=== PATIENT | female | born 1950 | race Caucasian/White ===

== ENCOUNTER 2016-02-26 06:01 | Inpatient (IN) | payer OTHER, BC ==
[2016-02-01 13:01] VITALS: BMI 28.0
--- NOTE | 2016-02-01 14:04 | PAT Medication Instructions ---
Service Date Feb 01, 2016. Current Home Medication List Aspirin (Aspirin Ec), 81 MG PO QAM Budesonide/Formoterol Fumarate (Symbicort 80/4.5 Inhaler), 2 PUFFS INH PRN Ergocalciferol (Vitamin D 30730 Unit), 50,000 UNIT PO 2XWEEK Escitalopram Oxalate (Lexapro), 20 MG PO QAM Gabapentin (Neurontin), 300 MG PO TID Hydrocodone/Acetaminophen 7.5MG/325MG (Mccaskill 7.5MG/325MG), 1-2 TAB PO Q6H PRN for N Levothyroxine Sodium (Synthroid), 137 MG PO QAM Losartan Potassium (Cozaar), 25 MG PO QAM Multivitamin (Multivitamin), 1 TAB PO NOON Medication Instructions For Your Scheduled Surgery - Hold the following medications the morning of surgery: Losartan Potassium (Cozaar), 25 MG PO QAM Multivitamin (Multivitamin), 1 TAB PO NOON Ergocalciferol (Vitamin D 96469 Unit), 50,000 UNIT PO 2XWEEK (may take day before or day after) - Take the following medications the morning of surgery with a sip of water OTHERWISE NOTHING TO EAT OR DRINK AFTER MIDNIGHT: Aspirin (Aspirin Ec), 81 MG PO QAM Gabapentin (Neurontin), 300 MG PO TID Levothyroxine Sodium (Synthroid), 137 MG PO QAM Hydrocodone/Acetaminophen 7.5MG/325MG (Mccaskill 7.5MG/325MG), 1-2 TAB PO Q6H PRN ( may take up to 4 hours prior to surgery if needed) Escitalopram Oxalate (Lexapro), 20 MG PO QAM Budesonide/Formoterol Fumarate (Symbicort 80/4.5 Inhaler), 2 PUFFS INH PRN - Take the following medications as scheduled the night before surgery: Gabapentin (Neurontin), 300 MG PO TID Hydrocodone/Acetaminophen 7.5MG/325MG (Mccaskill 7.5MG/325MG), 1-2 TAB PO Q6H PRN for N If you have any questions please call us at [phone] (Alyssa Skelton PA-C ) or [phone] or [phone]
[2016-02-01 14:28] LABS: BASO % 0.5 %; BASO ABS # 0.03 K/uL (0-0.2); COMPLETE YES; EOS % 0.9 %; HEMATOCRIT 41.9 % (37-47); IG% 0.4 %; LYMPH ABS # 1.32 K/uL (1.2-3.4); MEAN CELL VOLUME 92.5 fL (80-100); MEAN CORPUSCULAR HEMOGLOBIN 30.7 pg (25-34); MEAN CORPUSCULAR HGB CONC 33.2 g/dl (32-36); MEAN PLATELET VOLUME 9.7 fL (7.4-10.4); MONO % 8.7 %; NEUT % 65.5 %; PLATELET COUNT 288 K/uL (130-400); RED BLOOD COUNT 4.53 M/uL (4.2-5.4)
[2016-02-01 14:39] LABS: PROTHROMBIN TIME (PATIENT) 10.4 SECONDS (9.0-12.0)
[2016-02-01 14:43] LABS: URINE APPEARANCE CLEAR (CLEAR); URINE BILIRUBIN NEG (NEG); URINE COLOR YELLOW; URINE NITRITE NEG (NEG); URINE PH 7.5 (4.5-7.5); URINE SPECIFIC GRAVITY 1.012 (1.000-1.030); UROBILINOGEN NEG (NEG); ZZUR CULT IF INDIC CLEAN CATCH NO
[2016-02-01 14:44] LABS: MANUAL MICROSCOPIC REQUIRED? NO; REVIEW REQ? NO
[2016-02-01 15:01] LABS: BUN/CREATININE RATIO 13.1 (10-20); CREATININE 0.96 mg/dl (0.60-1.20); POTASSIUM 4.1 mmol/L (3.5-5.1)
[2016-02-01 18:13] LABS: CALCIUM 9.4 mg/dl (8.5-10.1)
--- NOTE | 2016-02-08 14:12 | HISTORY & PHYSICAL EXAMINATION ---
DATE OF ADMISSION: 02/25/2015 CHIEF COMPLAINT: Right knee pain. HISTORY OF PRESENT ILLNESS: Mr. Crawley is a pleasant 65-year-old female with a 2-year history of right knee pain. The patient rates his pain an 8/10. She has pain with his daily activities. She has limited standing and walking tolerance. Pain is worse with weightbearing. The patient has had injections, home exercise program and [place] without relief. She has failed conservative treatment and is scheduled for right knee replacement. PAST MEDICAL HISTORY: Hypertension, anxiety, thyroid disease, history of breast cancer, cervical cancer and thyroid disease. Positive for left lower extremity deep venous thrombosis. Denies heart disease or diabetes. PAST SURGICAL HISTORY: Hysterectomy, radical mastectomy, left knee replacement, vagotomy, right shoulder thyroidectomy and right wrist surgery. SOCIAL HISTORY: The patient drinks 6 drinks per week. She denies tobacco use. She lives in a 2-story home but is functional on one floor. She is and retired. FAMILY HISTORY: Positive for PE in her mother and grandmother. MEDICATIONS: Gabapentin 300 mg, citalopram 20 mg, Synthroid 137 mcg, losartan 25 mg. ALLERGIES: ATORVASTATIN, CELEBREX, MORPHINE, STATINS, SIMVASTATIN, CALCIUM, AGGLUTININ, AND COCONUT. REVIEW OF SYSTEMS: See HPI. Ten other systems reviewed, all negative. PHYSICAL EXAMINATION: VITAL SIGNS: Height 5 foot 5, weight 169 pounds, BMI is 28. GENERAL: This is a well-developed, well-nourished female who is alert and oriented x3. Mood and affect are appropriate. HEAD, EYES, EARS, NOSE, AND THROAT: Normocephalic, atraumatic. Mucous membranes are moist and intact. NECK: Supple without lymphadenopathy. HEART: Regular rate and rhythm without murmurs, rubs or gallops. LUNGS: Clear to auscultation without wheezes or rhonchi. ABDOMEN: Soft and nontender. Bowel sounds are equal and active. EXTREMITIES: No ecchymosis, redness or warmth. Thigh and calf are soft and nontender. She has neutral alignment. Range of motion is from 0-115 degrees with no laxity. She is neurovascularly intact with +5/5 strength. X-RAY EXAMINATION: AP and lateral views show joint space narrowing and osteophyte formation. IMPRESSION: Degenerative joint disease, right knee. PLAN: The patient will be admitted for a right unicompartmental knee replacement. We will plan on aspirin for DVT prophylaxis. The patient will plan on outpatient physical therapy.
[2016-02-26] VITALS (8 sets, daily range): BP systolic 108–150; BP diastolic 70–85; PULSE 54–75; TEMP 36.4–36.9; O2SAT 96–97; Ht 165.1 cm; Wt 76.8 kg
[~2016-02-26] VITALS: Ht 165.1 cm; Wt 76.8 kg
[~2016-02-26 06:01] MED LIST: ACETAMINOPHEN 500 MG TAB PO SCH; ASPI81TA28 PO; CEFAZOLIN 2000 MG/60 ML D5W 60 ML IV SCH; DEXAMETHASONE 4 MG TAB PO SCH; ERGO500037 PO; ESCI1TAB10 PO; FAMOTIDINE 20 MG TAB PO SCH; GABA-113 PO; GABAPENTIN 300 MG CAP PO SCH; HYDR-3983 PO; LACTATED RINGER'S 1000ML IV SCH; LACTATED RINGER'S 500 ML IV SCH; LEVO-519 PO; LOSA1TAB PO; METOCLOPRAMIDE HCL 10 MG TAB PO SCH; MULT-506 PO; OXYCODONE HCL 10 MG TABCR (OXYCONTIN) PO SCH; ROPIVACAINE 5MG/ML 30 ML 150 MG, BUPIVACAINE/EPINEPHR 0.5% MPF 30 ML, KETOROLAC TROMETH... INFIL SCH; SYMIN/8045 INH
[2016-02-26] MEDS ORDERED: BUPIVACAINE 0.25% 30 ML VIAL ONE (06:22)
[2016-02-26] MEDS ORDERED: BUPIVACAINE 0.5 % 5 MG/1 ML PF 10ML VIAL ONE (06:22)
[2016-02-26] MEDS: TRANEXAMIC ACID INJ 1,000 MG in SODIUM CHLORIDE 0.9% 100ML 100 ML IV SCH ×2 (06:30→08:20)
[2016-02-26] MEDS ORDERED: PROPOFOL IV EMULSION 10 MG/ML 20 ML VIAL IV ONE ×2 (06:38→09:46)
[2016-02-26] MEDS ORDERED: MIDAZOLAM HCL 1 MG/ML 2ML VIAL ONE (06:38)
[2016-02-26] MEDS ORDERED: FENTANYL CITRATE INJ 50 MCG/1 ML 2 ML VIAL ONE (06:38)
[2016-02-26] MEDS ORDERED: ORTHO JOINT ANESTHETIC ONE (06:53)
--- NOTE | 2016-02-26 07:06 | History & Physical Bridge Note ---
H&P Re-Evaluation Bridge Note: I have examined the patient, reviewed the History & Physical and in the interval since the performance of the History & Physical I have noted the following changes of clinical significance: No changes noted
[2016-02-26] MEDS ORDERED: SCOPOLAMINE 1.5 MG TDSY TD ONE (07:42)
[2016-02-26] MEDS ORDERED: ATROPINE SULFATE 0.1 MG/ML 5ML SYR IV PRN (07:45)
[2016-02-26] MEDS ORDERED: SCOPOLAMINE 1.5 MG TDSY TD SCH (07:45)
[2016-02-26] MEDS ORDERED: EpHEDrine SULFATE INJ 50 MG/ML AMP IV PRN (07:45)
[2016-02-26] MEDS ORDERED: ONDANSETRON INJ 2 MG/ML 2 ML VIAL IV PRN ×2 (07:45→10:15)
[2016-02-26] MEDS ORDERED: FENTANYL CITRATE INJ 50 MCG/1 ML 2 ML VIAL IV PRN (07:45)
[2016-02-26] MEDS: CHECK SCOPOLAMINE PATCH PLACEMENT SCH ×2 (08:00→16:04)
[2016-02-26] MEDS ORDERED: BUPIVACAINE/EPINEPHRINE 0.25% 1:200,000 30 ML VIAL INJ ONE (09:39)
[2016-02-26] MEDS: POLYMYXIN B SULFATE 100,000 UNITS in NSS 100ML IR SCH ×2 (09:53→09:55)
[2016-02-26] MEDS: VANCOMYCIN INJ 400 MG in NSS 100ML IR SCH ×2 (09:53→09:55)
[2016-02-26] MEDS ORDERED: POVIDONE-IODINE OP SOLN 30 ML BTL TOP ONE (10:00)
[2016-02-26] MEDS ORDERED: BACITRACIN 50000 UNIT VIAL IR ONE (10:00)
--- NOTE | 2016-02-26 10:01 | [facility] Post Operative Brief Note ---
Immediate Operative Summary Operative Date Feb 26, 2016. Pre-Operative Diagnosis Degenerative joint disease, right knee Post-Operative Diagnosis same as preop Procedure(s) Performed Right Unicompartmental Total Knee Arthroplasty Surgeon Dr. Akash Arroyo [employer] Surgeon(s) RODRICK Odom Estimated Blood Loss 5ML Findings MEDIAL DZ ACL INTACT Specimens A: Right knee bone and tissue Complication(s) None Disposition Recovery Room / PACU
[2016-02-26] MEDS ORDERED: BISACODYL 10 MG SUPP PR PRN (10:15)
[2016-02-26] MEDS ORDERED: KETOROLAC TROMETHAMINE 15 MG/ML VIAL IV. PRN (10:15)
[2016-02-26] MEDS ORDERED: MAGNESIUM HYDROXIDE SUSP 30 ML UDC PO PRN (10:15)
[2016-02-26] MEDS ORDERED: TRAMADOL HCL 50 MG TAB PO PRN (10:15)
[2016-02-26] MEDS ORDERED: DiphenhydrAMINE HCL 50 MG/ML VIAL IV PRN (10:15)
[2016-02-26] MEDS ORDERED: SOD PHOSPHATE/SOD BIPHOSPHATE ENEMA 132 ML BTL PR PRN (10:15)
[2016-02-26] MEDS ORDERED: ALUMINUM/MAGNESIUM/SIMETH (MAALOX MAX) 30 ML UDC PO PRN (10:15)
[2016-02-26] MEDS ORDERED: ZOLPIDEM TARTRATE 5 MG TAB PO PRN (10:15)
[2016-02-26] MEDS ORDERED: METOCLOPRAMIDE HCL INJ 5 MG/ML 2 ML VIAL IV PRN (10:15)
[2016-02-26] MEDS ORDERED: ONDANSETRON INJ 2 MG/ML 2 ML VIAL ONE (10:16)
--- NOTE | 2016-02-26 11:02 | DIAGNOSTIC IMAGING REPORT ---
RIGHT KNEE 1 OR 2 VIEWS ROUTINE CLINICAL HISTORY: Degenerative arthritis. Postop study. COMPARISON: None. DISCUSSION: There are postsurgical changes of a medial joint compartment arthroplasty. There are no acute fractures. There is no dislocation. There is air within soft tissues consistent with recent surgery. IMPRESSION: Postsurgical changes of a medial joint compartment arthroplasty. Electronically signed by: Krunal Cho M.D. 02/26/2016 11:00 AM
--- NOTE | 2016-02-26 11:16 | Anesthesiology Progress Note ---
Anesthesia Post Op Note Date & Time Feb 26, 2016 at 11:15 Vital Signs Pain Intensity: 6 Vital Signs Past 12 Hours Date Time Temp Pulse Resp B/P Pulse Ox O2 Delivery O2 Flow Rate FiO2 02/26/16 11:10 36.5 63 16 104/65 97 Nasal Cannula 2 02/26/16 11:00 63 16 114/64 96 Nasal Cannula 2 02/26/16 10:50 66 16 115/64 95 Nasal Cannula 2 02/26/16 10:40 72 16 119/65 97 Mask 10 02/26/16 10:30 36.9 70 16 107/59 97 Mask 10 02/26/16 06:55 36.7 54 18 150/85 96 Room Air Notes Mental Status: alert / awake / arousable, participated in evaluation Pt Amnestic to Procedure: Yes Nausea / Vomiting: adequately controlled Pain: adequately controlled Airway Patency, RR, SpO2: stable & adequate BP & HR: stable & adequate Hydration State: stable & adequate Neuraxial Anesthesia: was administered, sensory block is resolving Anesthetic Complications: no major complications apparent
[2016-02-26] MEDS ORDERED: PHENYLEPHRINE 100MCG/ML 5ML SYR ONE (12:13)
[2016-02-26] MEDS: D5W AND 1/2NSS + 20MEQ KCL 1,000 ML IV SCH ×2 (12:45→22:07)
[2016-02-26] MEDS: GABAPENTIN 300 MG CAP PO SCH ×2 (14:15→21:10)
[2016-02-26] MEDS: ACETAMINOPHEN 500 MG TAB PO SCH ×2 (14:29→22:06)
[2016-02-26] MEDS: CEFAZOLIN IV 2,000 MG in DEXTROSE 5% 50ML 50 ML IV SCH (15:56)
[2016-02-26] MEDS: SENNA 8.6 MG TAB PO SCH (21:10)
[2016-02-27] MEDS: CHECK SCOPOLAMINE PATCH PLACEMENT SCH (00:27)
[2016-02-27] MEDS: CEFAZOLIN IV 2,000 MG in DEXTROSE 5% 50ML 50 ML IV SCH (00:27)
[2016-02-27 03:30] VITALS: BP 109/66; PULSE 56; TEMP 36.7; O2SAT 95
[2016-02-27] MEDS: LEVOTHYROXINE 137 MCG TAB PO SCH (05:24)
[2016-02-27] MEDS: ACETAMINOPHEN 500 MG TAB PO SCH ×3 (05:25→21:37)
[2016-02-27 06:13] LABS: HEMATOCRIT 34.3 % (37-47); MEAN CELL VOLUME 93.7 fL (80-100); MEAN CORPUSCULAR HEMOGLOBIN 30.6 pg (25-34); MEAN CORPUSCULAR HGB CONC 32.7 g/dl (32-36); PLATELET COUNT 245 K/uL (130-400); RED BLOOD COUNT 3.66 M/uL (4.2-5.4); WHITE BLOOD COUNT 14.22 K/uL (4.8-10.8)
[2016-02-27 06:41] LABS: BUN/CREATININE RATIO 11.2 (10-20); CALCIUM 8.2 mg/dl (8.5-10.1); POTASSIUM 4.5 mmol/L (3.5-5.1)
[2016-02-27 07:12] VITALS: BP 104/65; PULSE 50; TEMP 36.7; O2SAT 96
--- NOTE | 2016-02-27 07:57 | Anesthesiology Progress Note ---
Anesthesia Post Op Note Date & Time Feb 27, 2016 at 07:56 Vital Signs Pain Intensity: 0.0 Vital Signs Past 12 Hours Date Time Temp Pulse Resp B/P Pulse Ox O2 Delivery O2 Flow Rate FiO2 02/27/16 07:12 36.7 50 16 104/65 96 Room Air 02/27/16 03:30 36.7 56 16 109/66 95 Room Air 02/26/16 23:40 Room Air 02/26/16 23:05 36.9 55 16 146/70 97 Room Air Notes Mental Status: alert / awake / arousable, participated in evaluation Pt Amnestic to Procedure: Yes Nausea / Vomiting: adequately controlled Pain: adequately controlled Airway Patency, RR, SpO2: stable & adequate BP & HR: stable & adequate Hydration State: stable & adequate Neuraxial Anesthesia: was administered, sensory block resolved Anesthetic Complications: no major complications apparent
--- NOTE | 2016-02-27 08:12 | Orthopedic Progress Note ---
Orthopedic Progress Note Date of Service Feb 27, 2016. Subjective Post OP Day: 1 Reports: feeling well, Denies: SOB, calf pain, chest pain, light headedness, nausea / vomiting Additional Notes: DOING GREAT, HAS ZERO PAIN Objective calves soft nontender, N/V intact, dressing C/D/I, A&O x3, toes mobile Date Time Temp Pulse Resp B/P Pulse Ox O2 Delivery O2 Flow Rate FiO2 02/27/16 07:12 36.7 50 16 104/65 96 Room Air 02/27/16 03:30 36.7 56 16 109/66 95 Room Air 02/26/16 23:40 Room Air 02/26/16 23:05 36.9 55 16 146/70 97 Room Air 02/26/16 19:54 36.5 64 16 110/72 96 Room Air 02/26/16 16:00 Nasal Cannula 2.0 02/26/16 14:44 36.6 71 16 117/71 96 2.0 02/26/16 13:27 75 16 108/70 97 2.0 02/26/16 12:38 36.4 66 16 118/71 97 2.0 02/26/16 12:05 68 16 122/73 97 2.0 02/26/16 11:30 36.5 67 14 122/73 97 Nasal Cannula 2.0 02/26/16 11:30 Nasal Cannula 2.0 02/26/16 11:30 Nasal Cannula 2.0 02/26/16 11:10 36.5 63 16 104/65 97 Nasal Cannula 2 02/26/16 11:00 63 16 114/64 96 Nasal Cannula 2 02/26/16 10:50 66 16 115/64 95 Nasal Cannula 2 02/26/16 10:40 72 16 119/65 97 Mask 10 02/26/16 10:30 36.9 70 16 107/59 97 Mask 10 Laboratory Results 24 Hours: Test 02/27/16 05:15 Hematocrit 34.3 % Hemoglobin 11.2 g/dL Assessment & Plan Assessment: POD#1 sp right TKA Inhouse Planning Pain Management: PO Tylenol, Oxy IR DVT Prophylaxis: TEDs, SCDs, Lovenox Discharge Planning Discharge Planning: home with oppt ([facility])
--- NOTE | 2016-02-27 08:39 | Discharge Instructions ---
Discharge Instructions Admission Reason for Admission: Right Knee Degenerative Arthritis Discharge Discharge Diagnosis / Problem: SP RIGHT TKA Discharge Goals Goal(s): Decrease discomfort, Improve function, Increase independence Activity Recommendations Activity Limitations: per Instructions/Follow-up section . Instructions / Follow-Up Instructions / Follow-Up ACTIVITY RECOMMENDATIONS: SELF CARE INSTRUCTIONS AFTER TOTAL KNEE REPLACEMENT A. You may need to continue a physical therapy program after discharge from the hospital. There are several options available to you. Your doctor will assist you in selecting the best one for you. 1. An out-patient facility 2 to 3 times a week for therapy or home therapy. 2. Continue working on all exercises taught to you in the hospital. Your goals should be to increase bending of your knee to 90 degrees and beyond and to fully straighten your knee. B. You may progress at your own pace from walking with a walker or crutches to a cane; then to no assistive devices. C. Make walking a part of your daily routine. Be up as much as comfortable with rest periods throughout the day. Rest with leg elevation is very important. Use the ice wrap frequently for the first 3-4 weeks. D. There are no restrictions on activities. You may ride in a car, shop, participate in chart writer and all social activities. E. Wear the long elastic stockings (JULITO hose) 20 hours a day for 2 weeks after surgery. They can be removed several times a day for laundering and for a bath. F. You may shower, no tub baths until cleared by your doctor. SPECIAL CARE INSTRUCTIONS: VERY IMPORTANT TO READ AND REVIEW A. There are a few signs you need to watch for after you are home. Call [facility] if you notice any of the followin. Increased severe knee pain. Some pain is expected especially when you exercise. 2. Increased swelling in your leg or knee; pain or swelling of the calf muscle in either lower leg. 3. Any fluid drainage from the incision. 4. Shortness of breath or chest pain. B. Please call [facility] at if you have any concerns or questions about your operation or recovery. The doctor or his nurse will return your call promptly. C. You must take antibiotics before dental work, bladder, bowel or other surgery. Your doctor will provide you with a permanent care to carry describing this precaution. IMPORTANT: * HIGH RISK PATIENTS MAY BE PRESCRIBED A STRONGER BLOOD THINNER. THIS WILL BE PROVIDED AT DISCHARGE. - LOVENOX INJECTIONS ONCE DAILY X 2 WEEKS * CALL IF INCREASED PAIN, REDNESS, DRAINAGE OR FEVER GREATER THAT 101. * WEAR JULITO HOSE 20 HOURS PER DAY FOR 2 WEEKS. DERMABOND Prineo- This is a mesh tape dressing that is covered with glue. It should remain in place until the incision is properly healed, usually 10-14 days. This dressing is designed to naturally slough off. You may trim the excess mesh tape as it peels off. Incision may be briefly wet in a shower. Dry immediately by blotting with a clean, dry towel. Do not bath or swim until instructed by your doctor. Do not scratch, rub, or pick at the dressing. Do not apply any topical ointments or lotions until dressing is completely removed and/or instructed by your doctor. There may be a small piece of suture material at one end of your incision. Do not pull or trim this. If it is bothersome or catching on clothing, you may cover it with a band-aid. FOLLOW UP VISIT: If appointment is not already scheduled: Please call [facility] to make a follow-up appointment for 2 weeks after your surgery at . Current Hospital Diet Patient's current hospital diet: Regular Diet Discharge Diet Recommended Diet: Regular Diet Procedures Procedures Performed: Right Unicompartmental Total Knee Arthroplasty Pending Studies Studies pending at discharge: no Medical Emergencies . Who to Call and When: Medical Emergencies: If at any time you feel your situation is an emergency, please call 911 immediately. . Non-Emergent Contact Non-Emergency issues call your: Primary Care Provider . "Provider Documentation" section prepared by Natalie Huertas. VTE Core Measure Inpt VTE Proph given/why not?: Unfractionated heparin SQ, T.E.Jai. Stockings, SCD 's
[2016-02-27] MEDS: D5W AND 1/2NSS + 20MEQ KCL 1,000 ML IV SCH (08:45)
[2016-02-27] MEDS: LOSARTAN POTASSIUM 25 MG TAB PO SCH (09:02)
[2016-02-27] MEDS: ESCITALOPRAM OXALATE 20 MG TAB PO SCH (09:02)
[2016-02-27] MEDS: PANTOprazole SOD 40 MG TAB PO SCH (09:03)
[2016-02-27] MEDS: MULTIVITAMIN TAB PO SCH (09:03)
[2016-02-27] MEDS: GABAPENTIN 300 MG CAP PO SCH ×3 (09:03→21:36)
[2016-02-27 10:59] VITALS: BP 110/67; PULSE 59; TEMP 36.5; O2SAT 96
[2016-02-27] MEDS: ENOXAPARIN 40 MG/0.4 ML SYR SQ SCH (12:49)
[2016-02-27] MEDS: OXYCODONE HCL IR 5 MG TAB (IMMEDIATE RELEASE) PO PRN (12:54)
[2016-02-27 15:28] VITALS: BP 121/75; PULSE 70; TEMP 36.7; O2SAT 91
[2016-02-27] MEDS: SENNA 8.6 MG TAB PO SCH (21:36)
[2016-02-27 23:10] VITALS: BP 115/73; PULSE 55; TEMP 36.6; O2SAT 97
[2016-02-28] MEDS: LEVOTHYROXINE 137 MCG TAB PO SCH (05:47)
[2016-02-28] MEDS: ACETAMINOPHEN 500 MG TAB PO SCH (05:48)
[2016-02-28 06:10] VITALS: BP 117/76; PULSE 62; TEMP 36.6; O2SAT 93
[2016-02-28] MEDS: GABAPENTIN 300 MG CAP PO SCH (06:58)
[2016-02-28] MEDS: PANTOprazole SOD 40 MG TAB PO SCH (06:58)
[2016-02-28] MEDS: ESCITALOPRAM OXALATE 20 MG TAB PO SCH (06:58)
[2016-02-28] MEDS: MULTIVITAMIN TAB PO SCH (06:58)
[2016-02-28] MEDS: LOSARTAN POTASSIUM 25 MG TAB PO SCH (06:59)
[2016-02-28] MEDS: OXYCODONE HCL IR 5 MG TAB (IMMEDIATE RELEASE) PO PRN ×2 (07:02→12:06)
--- NOTE | 2016-02-28 07:36 | Orthopedic Progress Note ---
Orthopedic Progress Note Date of Service Feb 28, 2016. Subjective Post OP Day: 2 Reports: feeling well, Denies: SOB, calf pain, chest pain, light headedness, nausea / vomiting Objective calves soft nontender, N/V intact, dressing C/D/I, A&O x3, toes mobile Date Time Temp Pulse Resp B/P Pulse Ox O2 Delivery O2 Flow Rate FiO2 02/28/16 06:10 36.6 62 20 117/76 93 Room Air 02/27/16 23:10 36.6 55 20 115/73 97 Room Air 02/27/16 20:00 Room Air 02/27/16 16:44 Room Air 02/27/16 15:28 36.7 70 18 121/75 91 Room Air 02/27/16 10:59 36.5 59 16 110/67 96 Room Air 02/27/16 09:00 Room Air Assessment & Plan Assessment: POD#2 sp right TKA Inhouse Planning Pain Management: PO Tylenol, Oxy IR DVT Prophylaxis: TEDs, SCDs, Lovenox Discharge Planning Discharge Planning: home with oppt (DC HOME TODAY AFTER PT)
[2016-02-28] MEDS ORDERED: SNK PO (07:38)
[2016-02-28] MEDS ORDERED: RXC5 PO (07:38)
[2016-02-28] MEDS ORDERED: LVNIS40 SQ (07:38)
[2016-02-28] MEDS ORDERED: ACET-1138 PO (07:38)
[2016-02-28] MEDS ORDERED: ONDA8TAB6 PO (07:38)
--- NOTE | 2016-02-28 09:27 | OPERATIVE REPORT ---
DATE OF OPERATION: 02/26/2016 PREOPERATIVE DIAGNOSIS: Degenerative arthritis, medial compartment, right knee. POSTOPERATIVE DIAGNOSIS: Same. PROCEDURE: Right unicompartmental knee replacement. SURGEON: Dr. Arroyo. HAND SEWER SHOES: Shai Loving PA-C. ANESTHESIA: Spinal. TOURNIQUET TIME: 60 minutes at 350 mmHg due to hypertension. DRAINS: None. CULTURES: None. COMPLICATIONS: None. COMPONENTS USED: [place] \T\ Nephew ZUK unicompartmental femur size E and tibia size 3 x 8. NOTE: Shai Loving PA-C was present and assisted throughout due to the complicated nature of this case. He helped with preparation and setup, first assisted throughout and personally closed the capsule, subcutaneous and skin layers and applied the postoperative dressing. OPERATION AND FINDINGS: DESCRIPTION: Following satisfactory spinal, the patient was supine. A tourniquet was placed on the right lower extremity. The right lower extremity was prepared with ChloraPrep and draped sterilely. Following a surgical time-out, a longitudinal incision was made just medial to the patella. The medial capsular arthrotomy was performed. The knee showed grade 4 changes of the majority of the medial compartment with some grade 2 changes on the periphery of the femoral trochlea. The cruciate ligaments were intact. The lateral compartment was normal. The attention was turned first to the tibia. The anterior horn medial meniscectomy was performed using the extramedullary alignment guide, the tibia was resected with 5 degrees of posterior slope. The spacer block technique was then used to determine resection of the distal femur. Soft tissue balancing with an 8 mm gap stick showed full extension and good flexion with appropriate laxity. The femur was prepared for a size E, the tibia was sized for the 3 and a trial reduction with the above components showed good tracking, full extension and flexion to more than 120 degrees. The trial components were removed. The capsule was prepared with the orthopedic cocktail and after irrigation, the components were cemented using Simplex G cement. A Betadine soak was performed. When the cement had hardened, the Betadine was irrigated. The capsulotomy was closed with 1 Vicryl interrupted. The subcutaneous tissues were closed with 2-0 Vicryl and the skin with a running subcuticular stitch of 3-0 V-Loc. Dermabond and a dry dressing were applied. Tourniquet was deflated. The patient was returned to her bed in stable condition. I attest to the content of the Intraoperative Record and any orders documented therein. Any exceptio ns are noted below.
[2016-02-28 11:08] VITALS: BP 117/76; PULSE 62; TEMP 36.6; O2SAT 93
[2016-02-28] MEDS: ENOXAPARIN 40 MG/0.4 ML SYR SQ SCH (12:03)
--- NOTE | 2016-02-28 23:15 | DISCHARGE SUMMARY ---
DISCHARGE DIAGNOSIS: Degenerative joint disease, right knee. SECONDARY DIAGNOSES: Hypertension, anxiety, thyroid disease, history of breast cancer, cervical cancer and history of left lower extremity DVT. CONSULTS: None. COMPLICATIONS: None. PROCEDURE: Right total knee arthroplasty performed by Dr. Akash Arroyo on 02/26/2016. BRIEF HISTORY: As dictated in the history and physical. HOSPITAL SUMMARY: The patient was admitted on the above date and had the above noted surgery performed which she tolerated well. On her first postoperative day, she was feeling well and had no complaints. Her pain was controlled. Calves were soft and nontender, neurovascularly intact. Dressings were clean, dry and intact. Toes were mobile. Vital signs were stable. She was afebrile. Hemoglobin was 11.2. She was started on physical therapy protocol and continued on DVT prophylaxis and pain management. By her second postoperative day, she was feeling well and had no complaints. The calves were soft, nontender and neurovascularly intact. The dressings were clean, dry and intact. Toes were mobile. Vital signs were stable. She is afebrile. She is progressing well with her physical therapy and it was felt she could be discharged to home with outpatient PT on 02/28/2016. For further review, please see the chart. LAB AND X-RAY DATA: As per chart. DISCHARGE INSTRUCTIONS: The patient was discharged to home in a satisfactory condition on 02/28/2016. DIET: Regular. ACTIVITY: Follow TKA instruction sheets and special care instructions as noted. Follow up with Dr. Akash Arroyo in 2 weeks. The patient to call for appointment if one has not been made for yet. DISCHARGE MEDICATIONS: Acetaminophen 1000 mg p.o. q. 8 hours, enoxaparin 40 mg subQ 24 hours for 14 days, Zofran 8 mg p.o. q. 8 hours p.r.n., oxycodone 5-10 mg p.o. q. 4 hours p.r.n., senna 17.2 mg p.o. at bedtime. Resume taking aspirin 81 mg p.o. q.a.m., Symbicort 80/4.5 two puffs inhaled p.r.n., vitamin D 50,000 units p.o. 2 times a week, Lexapro 20 mg p.o. q.a.m., gabapentin 300 mg p.o. t.i.d., levothyroxine 137 mg p.o. q.a.m., losartan potassium 25 mg p.o. q.a.m., multivitamin 1 tab p.o. at noon. Stop taking [place].
== END 2016-02-28 13:01 | disposition home or self-care (01) | DRG 470 ==
LOC: ENRESERVDT → ENRESERVTM → C.ACU 06:01 → C.3E 06:30
PROVIDERS: ADMIT Orthopaedic Surgery; ATTEND Orthopaedic Surgery
PROC: 0SRC0J9 Replacement of Right Knee Joint with Synthetic Substitute, Cemented, Open Approach (ICD-10-PCS; principal; 2016-02-26 08:30)
DX: M17.11 Unilateral primary osteoarthritis, right knee (principal); I10 Essential (primary) hypertension; E89.0 Postprocedural hypothyroidism; M79.7 Fibromyalgia; K90.0 Celiac disease; F41.9 Anxiety disorder, unspecified; F32.9 Major depressive disorder, single episode, unspecified; Z96.652 Presence of left artificial knee joint; Z86.718 Personal history of other venous thrombosis and embolism; Z83.2 Family history of diseases of the blood and blood-forming organs and certain disorders involving the immune mechanism; Z79.51 Long term (current) use of inhaled steroids; Z79.82 Long term (current) use of aspirin; Z79.891 Long term (current) use of opiate analgesic; Z79.899 Other long term (current) drug therapy